=== PATIENT | female | born 1955 | race Caucasian/White ===

== ENCOUNTER 2017-07-19 13:05 | Emergency (ER) | payer SELFPAY ==
[~2017-07-19] VITALS: Ht 162.6 cm; Wt 74.4 kg
[2017-07-19] MEDS ORDERED: [UNRECOGNIZED DRUG - OTHER] (13:26)
--- NOTE | 2017-07-19 13:28 | NUR ---
PT IS IN ROOM #1B. DR RILEY EVALUATED THE PT.
[2017-07-19] MEDS ORDERED: ACETAMINOPHEN 325 MG TABLET PO ONE (13:30)
[2017-07-19] MEDS ORDERED: ACETAMINOPHEN ES 500 MG TABLET ONE (13:47)
--- NOTE | 2017-07-19 14:39 | NUR ---
PT WAS RE-EVALUATED BY DR RILEY. PT WAS D/C TO HOME. D/C INSTRUCTIONS GIVEN TO THE PT.
[2017-07-19 14:40] VITALS: BP 125/73
== END 2017-07-19 14:41 | disposition home or self-care (01) ==
LOC: ER 13:05
DX: S06.0X0A Concussion without loss of consciousness, initial encounter (principal); S60.221A Contusion of right hand, initial encounter; S90.32XA Contusion of left foot, initial encounter; M85.80 Other specified disorders of bone density and structure, unspecified site; Z88.2 Allergy status to sulfonamides; W18.30XA Fall on same level, unspecified, initial encounter; Y92.89 Other specified places as the place of occurrence of the external cause; Y93.89 Activity, other specified; Y99.8 Other external cause status
CPT/HCPCS: 70450; 73130; 73630; 99284; A4663